=== PATIENT | female | born 1995 | race Caucasian/White ===

== ENCOUNTER 2018-02-06 16:36 | Emergency (ER) | payer OTHER ==
[2018-02-06 17:12] VITALS: BP 135/80
--- NOTE | 2018-02-06 17:14 | UC ---
Bite Injury/Animal HPI - HPI Summary HPI Summary: 22 y/o female presents to the urgent care c/o Here w/ bite from kitten to RIGHT index finger from 3 days ago, +bleed. C/o pain and swelling in index finger. No fever. No drainage. UTD tetanus. - History of Current Complaint Chief Complaint: UCBiteInjury Stated Complaint: CAT BITE TO FINGERS Time Seen by Provider: 02/06/18 17:12 Hx Obtained From: Patient Hx Last Menstrual Period: 02/01/18 ?: No Pain Intensity: 3 - Allergies/Home Medications Allergies/Adverse Reactions: Allergies Allergy/AdvReac Type Severity Reaction Status Date / Time No Known Allergies Allergy Verified 02/06/18 17:06 Home Medications: Home Medications Levothyroxine TAB* [Synthroid 137 MCG TAB*] 1 tab DAILY 02/06/18 [History Confirmed 02/06/18] PMH/Surg Hx/FS Hx/Imm Hx - Surgical History Surgical History: Yes Surgery Procedure, Year, and Place: Hernia - Social History Alcohol Use: Occasionally Substance Use Type: Marijuana Smoking Status (MU): Current Some Day Smoker Type: Cigars - Immunization History Most Recent Tetanus Shot: UTD Physical Exam - Summary Physical Exam Summary: Vital Signs Reviewed: Yes General: well developed, well nourished female sitting in the examining table w/ o any apparent distress. Eyes: Positive: Conjunctiva Clear - PERRLA, EOMI ENT: Positive: Normal ENT inspection, Hearing grossly normal, Pharynx normal, TMs normal Neck: Positive: Supple, Nontender, No Lymphadenopathy Respiratory: Positive: Chest nontender, Lungs clear, Normal breath sounds Cardiovascular: Positive: RRR, No Murmur, Pulses Normal Abdomen Description: Positive: Nontender, No Organomegaly, Soft. Negative: CVA Tenderness (R), CVA Tenderness (L) Bowel Sounds: Positive: Present Musculoskeletal: Positive: Strength Intact, ROM Intact, No Edema Neurological Exam: Normal Psychological Exam: Normal Skin: Positive: rashes - distal RT index phalanx on lateral side of nail w/ a discrete puncture wound w/ mild swelling and erythema, no drainage observed, mild tender to palpation.FROM of RT index and RT hand. sensation intact, pulses are brisk, and pulses WNL. no streaking observed. Triage Information Reviewed: Yes Vital Signs: Initial Vital Signs Temp 98.8 F 02/06/18 17:07 Pulse 62 02/06/18 17:07 Resp 17 02/06/18 17:07 BP 135/80 02/06/18 17:07 Pulse Ox 100 02/06/18 17:07 Bite Injury Course/Dx - Differential Dx/Diagnosis Differential Diagnosis/HQI/PQRI: Cellulitis, Rabies Exposure, Tenosynovitis, Other - cat bite Provider Diagnoses: 1- RT index cat bite Discharge - Discharge Plan Condition: Stable Disposition: HOME Prescriptions: Amoxicillin/Clavulanate TAB* [Augmentin TAB 875*] 875 mg PO BID #20 tab Bacitracin OINTMENT* 1 applic TOPICAL BID #1 tube Patient Education Materials: Animal Bite (ED) Referrals: [facility] [place] [facility] [Outside] - If Needed Additional Instructions: 1- Please apply Bacitracin oint over the wound area, avoid sun exposure. Take Augmentin PO as directed to prevent infection 2- Please take Ibuprofen PO q6 to 8hrs after meals prn for pain and swelling 3- Your were given Tetanus Vaccine today. 4- We don't have rabies vaccine . Since you are returning to the [place] tomorrow where the cat is located. Please f/u w/ the Health department and notify them and see if there is the need for rabies prophylaxis. 5- Please close observation w/ your kitten for the following 10 days if you see if he develops any abdnormal behavior 5- If develop fever, COMBS, N/V, abdominal pain, respiratory distress, muscle pain , dizziness despite antibiotics please return to the urgent care or to the ER for further management - Billing Disposition and Condition Condition: STABLE Disposition: Home
[2018-02-06] MEDS ORDERED: Tetan/Diph/Pertus SYR(Tdap)* 0.5 ML SYR(BOOSTRIX) use SYR IM ONE (17:30)
[2018-02-06] MEDS ORDERED: Amoxicillin/Clavulanate TAB* 875 MG PO ONE (17:47)
== END 2018-02-06 17:56 | disposition home or self-care (01) ==
LOC: UCCORT 16:36
DX: S61.250A Open bite of right index finger without damage to nail, initial encounter (principal); W55.01XA Bitten by cat, initial encounter; Y93.9 Activity, unspecified; Y92.9 Unspecified place or not applicable; F17.290 Nicotine dependence, other tobacco product, uncomplicated
CPT/HCPCS: 90471; 90715; 99212; A9270-GY; G0463

== ENCOUNTER → 2019-03-22 11:51 | Emergency (ER) | payer OTHER ==
[2019-03-22 12:36] VITALS: BP 115/67
--- NOTE | 2019-03-22 12:55 | UC ---
Skin Complaint HPI - HPI Summary HPI Summary: SKIN RASH X 2 WEEKS LOCATED BILATERAL BUTTOCKS THE RASH IS RED, RAISE, ITCHY AND PAINFUL HAS BEEN HAVING CLEAR DISCHARGE NO FEVER, NO CHILLS - History of Current Complaint Chief Complaint: UCSkin Time Seen by Provider: 03/22/19 12:37 Stated Complaint: SKIN BILATERAL LEG Hx Obtained From: Patient Hx Last Menstrual Period: 03/22/2018 ?: No Onset/Duration: Gradual Onset, Lasting Weeks - 2, Still Present Timing: Constant Onset Severity: Moderate Current Severity: Moderate Pain Intensity: 4 Location: Other - BIALATERAL UPPER THIGH JUST BELOW HER BUTTOCKS Character: Pruritus, Pain, Redness, Raised Aggravating Factor(s): Nothing Alleviating Factor(s): Nothing Associated Signs & Symptoms: Positive: Tenderness. Negative: Nausea, Vomiting, Fever, Chills - Allergy/Home Medications Allergies/Adverse Reactions: Allergies Allergy/AdvReac Type Severity Reaction Status Date / Time No Known Allergies Allergy Verified 03/22/19 12:29 Home Medications: Home Medications Ferrous Sulfate [Feosol] 325 mg PO DAILY 03/22/19 [History Confirmed 03/22/19] 95/Iron Fum/Folic/Dha [ + Dha Combo Pack] 1 cap PO BID [History Confirmed 03/22/19] PMH/Surg Hx/FS Hx/Imm Hx Previously Healthy: Yes - Surgical History Surgical History: Yes Surgery Procedure, Year, and Place: Hernia - Family History Known Family History: Negative: Diabetes Family History: Hypothyrodism - Social History Alcohol Use: Occasionally Substance Use Type: Marijuana Smoking Status (MU): Current Some Day Smoker Type: Cigars - Immunization History Most Recent Tetanus Shot: unsure Review of Systems All Other Systems Reviewed And Are Negative: Yes Constitutional: Positive: Negative Skin: Positive: Rash Eyes: Positive: Negative ENT: Positive: Negative Respiratory: Positive: Negative Is Patient Immunocompromised?: No Physical Exam Triage Information Reviewed: Yes Appearance: Well-Appearing, No Pain Distress, Well-Nourished Vital Signs: Initial Vital Signs Temp 97.5 F 03/22/19 12:32 Pulse 62 03/22/19 12:32 Resp 20 03/22/19 12:32 BP 115/67 03/22/19 12:32 Pulse Ox 99 03/22/19 12:32 Vital Signs Reviewed: Yes Eye Exam: Normal Eyes: Positive: Conjunctiva Clear ENT: Positive: Normal ENT inspection, Hearing grossly normal, Pharynx normal Neck: Positive: Supple, Nontender, No Lymphadenopathy Respiratory: Positive: Chest non-tender, Lungs clear, Normal breath sounds Cardiovascular: Positive: RRR, No Murmur, Pulses Normal Skin: Positive: Rashes - MACULOPAPULAR RASH BILATERAL UPPER THIGH, + ERYTHEMA, TENDER TO TOUCH Course/Dx - Diagnoses Provider Diagnosis: Contact dermatitis Discharge ED - Sign-Out/Discharge Documenting (check all that apply): Patient Departure All imaging exams completed and their final reports reviewed: No Studies - Discharge Plan Condition: Stable Disposition: HOME Prescriptions: predniSONE [Prednisone 20 MG TAB] 20 mg PO DAILY #5 tablet Triamcinolone 0.1% CREAM (NF) [Kenalog 0.1% Cream (NF)] 1 applic TOPICAL BID # 30 mg Patient Education Materials: Contact Dermatitis (DC) Referrals: No Primary Care Phys,NOPCP [Primary Care Provider] - 7 Days - Billing Disposition and Condition Condition: STABLE Disposition: Home
== END | disposition home or self-care (01) ==
LOC: UCCORT 11:51
DX: L25.9 Unspecified contact dermatitis, unspecified cause (principal); F17.210 Nicotine dependence, cigarettes, uncomplicated
CPT/HCPCS: 99212; G0463

== ENCOUNTER 2023-03-24 08:10 | Inpatient (IN) ==
[2023-03-24] MEDS ORDERED: Buffered Lidocaine 1% SYRIN 1 ml INTRADERM ONE (08:46)
[2023-03-24] MEDS ORDERED: Lactated Ringers 1000 ml BAG 1,000 ML IV ONE ×2 (08:46→16:26)
[2023-03-24] MEDS ORDERED: Lidocaine 1% VIAL 10 MG/ML 30 ML VIAL INJ PRN (08:46)
[2023-03-24] MEDS ORDERED: Lactated Ringers 1000 ml BAG 1,000 ML IV SCH ×3 (09:00→23:00)
[2023-03-24 09:47] LABS: Urine Benzodiazepine Screen None Detected (None Detect); Urine Cannabinoids Screen None Detected (None Detect); Urine Opiates Screen None Detected (None Detect)
[2023-03-24 09:59] LABS: ABS Eosinophils 0.1 10^3/uL (0.0-0.5); ABS Lymphocytes 1.5 10^3/uL (1.0-4.8); ABS Monocytes 0.2 10^3/uL (0.0-0.9); ABS Neutrophils 4.4 10^3/uL (1.5-7.6); Eosinophil % 0.9 %; Hematocrit 28.6 % (35-45); Hemoglobin 9.8 g/dL (11.5-14.3); Lymphocyte % 23.4 %; Mean Corpuscular Hemoglobin 28.2 pg (27-33); Mean Corpuscular Hgb Conc 34.4 g/dL (31-36); Mean Corpuscular Volume 82.2 fL (80-97); Mean Platelet Volume 7.6 fL (7.5-11.2); Platelet Count 223 10^3/uL (150-450); Red Blood Count 3.48 10^6/uL (3.63-4.92); Red Cell Distribution Width 14.6 % (12-17); White Blood Count 6.2 10^3/uL (3.8-11.8)
[2023-03-24] MEDS ORDERED: Oxytocin in LR 20,000 MILLI.UNIT/1,000 ML BAG IV SCH ×2 (13:25→22:35)
[2023-03-24] MEDS ORDERED: Lidocaine 1.5% EPI 1:200,000 30 ML SDV ONE ×2 (15:16→16:02)
[2023-03-24] MEDS ORDERED: OBEPIDURAL (200 ML) 200 ML EPIDURAL ONE (15:16)
[2023-03-24] MEDS ORDERED: Sodium Citrate/Citric Acid LIQ 15 ML UDC PO PRN (16:26)
[2023-03-24] MEDS ORDERED: Lactated Ringers 1000 ml BAG 500 ML IV PRN (16:26)
[2023-03-24] MEDS ORDERED: Phenylephrine 40 mcg/mL 10mL (400mcg) SYRINGE IV PUSH PRN (16:26)
[2023-03-24] MEDS ORDERED: OBEPIDURAL (200 ML) 200 ML EPIDURAL SCH (17:00)
[2023-03-24 17:44] LABS: Urine Appearance Clear; Urine Bilirubin Negative (Negative); Urine Blood Negative (Negative); Urine Color Colorless; Urine Glucose Negative (Negative); Urine Ketones Negative (Negative); Urine Nitrite Negative (Negative); Urine Protein Negative (Negative); Urine Specific Gravity 1.002 (1.002-1.030); Urine Urobilinogen Negative (Negative)
[2023-03-24] MEDS ORDERED: Witch Hazel PAD JAR TOPICAL PRN (22:31)
[2023-03-24] MEDS ORDERED: Glycerin ADULT 2.4 gm SUPP PR PRN (22:31)
[2023-03-24] MEDS ORDERED: Measles, Mumps,Rubella VACC 0.5 ML/VIAL SUBCUT ONE (22:31)
[2023-03-25] MEDS: Dibucaine 1% OINT 28.35 GM TUBE PR PRN ×2 (00:06→12:35)
[2023-03-25 07:02] LABS: ABS Basophils 0.1 10^3/uL (0.0-0.1); ABS Eosinophils 0.1 10^3/uL (0.0-0.5); ABS Lymphocytes 1.6 10^3/uL (1.0-4.8); ABS Monocytes 0.4 10^3/uL (0.0-0.9); ABS Neutrophils 8.3 10^3/uL (1.5-7.6); ABS Nucleated RBC 0.01 10^3/ul; Eosinophil % 0.7 %; Hematocrit 27.5 % (35-45); Hemoglobin 9.7 g/dL (11.5-14.3); Mean Corpuscular Hemoglobin 28.7 pg (27-33); Mean Corpuscular Hgb Conc 35.2 g/dL (31-36); Mean Corpuscular Volume 81.5 fL (80-97); Mean Platelet Volume 7.7 fL (7.5-11.2); Nucleated Red Blood Cells % 0.1 /100 WBC (0.0-0.4); Platelet Count 202 10^3/uL (150-450); Red Blood Count 3.37 10^6/uL (3.63-4.92); Red Cell Distribution Width 14.5 % (12-17); White Blood Count 10.4 10^3/uL (3.8-11.8)
[2023-03-26 08:17] VITALS: BP 116/75
[2023-03-26] MEDS ORDERED: Measles, Mumps,Rubella VACC 0.5 ML/VIAL SUBCUT ONE (09:00)
== END 2023-03-26 11:39 | disposition home or self-care (01) | DRG 560 ==
LOC: MCHOBOUT 08:10 → MCHOB 08:46
PROVIDERS: ADMIT Midwife; ATTEND Midwife